=== PATIENT | male | born 1955 | race Caucasian/White ===

== ENCOUNTER → 2021-03-22 | Outpatient (CLI) | payer BC ==
[2021-03-22 11:14] LABS: HCT 43.5 % (39.0-53.0); HGB 15.1 gm/dL (13.0-17.5); MCH 34.2 pg (25.0-35.0); MCHC 34.8 g/dL (31.0-37.0); MCV 98.2 fL (80.0-100.0); Mean Platelet Volume 7.4; Platelet Count 267 k/uL (150-450); RBC 4.43 m/uL (4.30-5.90); RDW 11.8 % (11.5-15.5); WBC 6.1 k/uL (3.8-10.6)
[2021-03-22 11:27] LABS: ALT 21 U/L (4-49); AST 25 U/L (17-59); African American GFR (CKD) >90 (>60 ml/min/1.73 sqM); Albumin 4.7 g/dL (3.5-5.0); Alkaline Phosphatase 67 U/L (38-126); Anion Gap 7 mmol/L; Blood Urea Nitrogen 9 mg/dL (9-20); Calcium 9.9 mg/dL (8.4-10.2); Carbon Dioxide 27 mmol/L (22-30); Chloride 96 mmol/L (98-107); Glucose 101 mg/dL (74-99); Non-African American GFR(CKD) >90 (>60 ml/min/1.73 sqM); Potassium 4.2 mmol/L (3.5-5.1); Sodium 130 mmol/L (137-145); Total Bilirubin 0.6 mg/dL (0.2-1.3); Total Protein 7.7 g/dL (6.3-8.2)
[2021-03-22 11:31] LABS: Partial Thromboplastin Time 24.2 sec (22.0-30.0); Prothrombin Time 10.4 sec (9.0-12.0)
[2021-03-22 11:53] LABS: Appearance,Urine Clear (Clear); Bilirubin,Urine Negative (Negative); Blood,Urine Negative (Negative); Color,Urine Light Yellow; Glucose,Urine (UA) Negative (Negative); Ketones,Urine Negative (Negative); Leukocyte Esterase,Urine Negative (Negative); Nitrite,Urine Negative (Negative); PH, Urine 7.5 (5.0-8.0); Protein,Urine Negative (Negative); Specific Gravity,Urine 1.007 (1.001-1.035); Urobilinogen,Urine <2.0 mg/dL (<2.0)
== END | disposition home or self-care (01) ==
LOC: LABPAT 10:09
PROVIDERS: ATTEND Orthopaedic Surgery
DX: Z01.812 Encounter for preprocedural laboratory examination (principal); M16.12 Unilateral primary osteoarthritis, left hip
CPT/HCPCS: 36415; 80053; 81003; 85027; 85610; 85730; 87070

== ENCOUNTER 2021-04-03 07:45 | Day surgery (SDC) | payer BC ==
[2021-03-30 09:36] VITALS: BMI 22.9
[~2021-04-03 07:45] MED LIST: ACETAMINOPHEN TAB 500 MG TAB PO PRN; DEXAMETHASONE SOD PHOSPHATE 4 MG/ML 1 ML VIAL IV ONE; GABAPENTIN 300 MG CAP PO PRN; LIDOCAINE 1% (10MG/ML) FOR IV START INTRADERMA PRN; MELOXICAM 7.5 MG TAB PO PRN; MIDAZOLAM 2 MG/2 ML VIAL IV PRN; ONDANSETRON 4 MG/2 ML VIAL IVP ONE; TRANEXAMIC ACID 1,000 MG in SODIUM CHLORIDE 0.9% 100 ML IVPB PRN
[2021-04-03] MEDS: LACTATED RINGERS 1,000 ML IV SCH ×2 (08:26→09:19)
[2021-04-03] MEDS ORDERED: HEPARIN SODIUM,PORCINE 10,000 UNIT/ML 1 ML VIAL ONE (09:18)
[2021-04-03] MEDS ORDERED: SUCCINYLCHOLINE CHLORIDE 100 MG/5 ML SYR IV ONE (09:18)
[2021-04-03] MEDS ORDERED: TRANEXAMIC ACID 1,000 MG/10 ML VIAL ONE (09:18)
[2021-04-03] MEDS ORDERED: SODIUM CHLORIDE 0.9% IRRIG 1,000 ML BTL IRRIGATION ONE (09:18)
[2021-04-03] MEDS ORDERED: MIDAZOLAM 2 MG/2 ML VIAL ONE (09:18)
[2021-04-03] MEDS ORDERED: PROPOFOL 10 MG/ML 20 ML VIAL IV ONE (09:18)
[2021-04-03] MEDS ORDERED: HYDROmorphone (PF) 1 MG/ML ONE (09:18)
[2021-04-03] MEDS ORDERED: fentaNYL (PF) 50 MCG/ML 2 ML AMP ONE (09:18)
[2021-04-03] MEDS ORDERED: SODIUM CHLORIDE 0.9% 100 ML BAG ONE (09:18)
[2021-04-03] MEDS ORDERED: PHENYLEPHRINE-0.9% NACL SYG 1,000 MCG/10 ML SYRINGE ONE (09:18)
[2021-04-03] MEDS ORDERED: LIDOCAINE 1% INJ 10MG/ML (20 ML MDV) ONE (09:18)
[2021-04-03] MEDS ORDERED: KETAMINE 10 MG/ML 20 ML VIAL ONE (09:18)
[2021-04-03] MEDS ORDERED: ceFAZolin 1,000 MG in SODIUM CHLORIDE 0.9% 1,000 ML IRRIGATION ONE (09:21)
[2021-04-03] MEDS ORDERED: NALOXONE 0.4 MG/ML 1 ML VIAL IV PRN (09:24)
[2021-04-03] MEDS ORDERED: HYDROmorphone 0.5 MG/0.5 ML SYRINGE IVP PRN (09:24)
[2021-04-03] MEDS ORDERED: ONDANSETRON 4 MG/2 ML VIAL IVP PRN (09:24)
[2021-04-03] MEDS ORDERED: HYDROmorphone 0.2 MG/1 ML SYRINGE IVP PRN (09:24)
[2021-04-03] MEDS ORDERED: HYDROmorphone 1 MG/ML 1 ML SYRINGE IVP PRN (09:24)
[2021-04-03] MEDS ORDERED: HYDROcodone/APAP 7.5-325MG 1 EACH TAB PO PRN ×2 (09:26)
[2021-04-03] MEDS ORDERED: SODIUM CHLORIDE 0.9% 1,000 ML IV SCH (09:30)
[2021-04-03] MEDS: ROPIVACAINE/EPI/CLONIDINE/KET 50 ML SYRINGE MISCELLANE PRN ×2 (09:46→10:22)
--- NOTE | 2021-04-03 10:30 | P.OP ---
Date of Procedure: 04/03/21 Preoperative Diagnosis: Severe osteoarthritis left hip Postoperative Diagnosis: Severe osteoarthritis left hip Procedure(s) Performed: Left total hip arthroplasty with a direct anterior approach Implants: [employer] Polarstem standard size 4 [employer] R3, 3 hole hemispherical acetabular shell, 52 mm [employer] Reflection 6.5 mm cancellus screw, 20 mm 2 [employer] R3, XLPE 20 acetabular liner [employer] Oxinium femoral head 36 m, -3 All components were press-fit. The articulation is Oxinium on polyethylene. Anesthesia: GETA Surgeon: Yong Renner Clinical Cytogeneticist #1: Brenda Noble Estimated Blood Loss (ml): 100 Pathology: other (Femoral head) Condition: stable Disposition: PACU Indications for Procedure: After failure of conservative treatment we discussed the surgical and nonsurgical treatment options at length. Patient wishes to proceed with a total hip arthroplasty with a direct anterior approach. Complications specific to this procedure were discussed at length, including but not limited to infection, leg length discrepancy, dislocation, nerve injury, and fracture. Covid-19 was also discussed at length with the patient, and they are aware of the current policies and procedures. The patient was given the option of delaying surgery, but they elect to proceed knowing these risks. Patient is aware of all these complications and informed consent was obtained Operative Findings: The operative findings are consistent with severe osteoarthritis of the left hip Description of Procedure: Patient was seen and evaluated in the preoperative area and the consent was reviewed. The operative site was marked with a skin marker. The patient was then brought to the operating room and given preoperative antibiotics intr avenously. 1 g of Tranexamic acid was also given intravenously. A general anesthetic was administered by the anesthesia department. The patient was then placed on the Universal table with the bony prominences well-padded. The hip area was then prepped with a ChloraPrep solution and draped in the usual sterile fashion. A universal timeout was then performed, which confirmed the patient's name, joaquim gical site, ALLERGIES, and procedure being performed on the consent. Next the incision site was located at 1 cm distal to the anterior superior iliac spine and 2 cm lateral. The skin and subcutaneous tissues were sharply incised. Incision was carefully dissected down to the fascia overlying the tensor fascia tonny muscle. This fascia was then incised in line with the incision. Care was taken to stay laterally in order to avoid injuring the lateral femoral cutaneous nerve. Next, using blunt finger dissection, the tensor fascia tonny muscle was dissected off its investing fascia. The muscle was then carefully retracted laterally with a cobra retractor over the lateral neck of the femur. Next, the circumflex vessels were identified and cauterized using the AquaMantis device. The anterior hip capsule was then exposed. The capsule was then opened and an inverted T fashion. Cobra retractors were then placed intracapsularly. The retractors were maintained intracapsular throughout the procedure. The proximal femur was then visualized. A small amount of traction was placed on the leg. The femoral neck was then osteotomized appropriate level above the lesser trochanter. A small wedge of bone was then removed from the remaining femoral head. Next, using a corkscrew the femoral head was removed from the acetabulum. On gross visual inspection, the femoral head had complete loss of articular cartilage and multiple periarticular osteophytes. The femoral head was then measured. Attention was then turned to the acetabulum. The acetabulum was exposed and any remaining labrum was excised. Sequential reaming of the acetabulum was performed using fluoroscopic guidance until there was a good bed of bleeding cancellus bone. When the appropriate size was reached, a trial was then placed. The position and fit of the trial was checked with fluoroscopy. The trial was then removed. Then, using fluoroscopic guidance, the final implant was impacted at 20 of anteversion and 40 of abduction, and fully seated in the acetabulum. 2 screws were then placed in the acetabulum. Again fluoroscopy was used to check position of the screws. Next, the liner was then impacted, with a 20 elevated liner located in the anterior superior quadrant. Component locking was confirmed. Attention was then directed to the femur. With the aid of the Universal table, the femur was externally rotated to approximately 130, extended, and adducted under the opposite leg. A side hook was then placed under the proximal femur, and the side hook elevator was used to elevate the proximal femur while releasing the capsule. Retractors were then placed. A capsular release was performed, as well as a release of the conjoined tendon, which afforded excellent visualization of the proximal femur. Next, a box osteotome was used to lateralize the proximal femur. A hand braille transcriber was then used to locate the femoral canal. Sequential broaching was then performed with appropriate size which afforded excellent fixation in the proximal femur. A trial was then placed with appropriate head and neck, and the hip was gently reduced with the aid of the Universal table. Fluoroscopy was then used to check position of the components, as well as to ensure equal leg lengths. The hip was then gently dislocated and the trials were then removed. Final implants were then impacted and the hip was again reduced. Final fluoroscopic x-rays confirmed that the components were in anatomic position, as well as equal leg lengths. The hip was also taken through range of motion, and found to be stable. The hip was then copiously irrigated with antibiotic solution with pulsatile lavage. The hip was then irrigated with Irrisept solution. The soft tissues were then injected with a ropivacaine solution, which consisted of 246.25 mg of ropivacaine, 0.5 mg of epinephrine, 30 mg of Toradol, 80 g of clonidine, and 48.45 mL of sterile water, for a total of 100 mL of fluid injected. A second dose of 1 g of Tranexamic acid was also given intravenously. Any blood collected by Cell Saver was then returned to the patient at this time. The fascia was then closed with 2-0 strata fix suture. The subcutaneous tissue was closed with 3-0 Vicryl. The subcuticular tissue was closed with 3-0 strata fix suture. The skin was then closed with Exofin skin glue. After the glue and dried, and Optifoam silver impregnated dressing was applied. The patient was then transferred to the recovery room in stable condition. The animal assistant HUNTER Sharpe was required due to the complexity of surgery, and the need for skilled surgical assistant certified for positioning, draping, exposure, retraction, and closure of the wound.
--- NOTE | 2021-04-03 10:44 | FL ---
Fluoroscopy INDICATION: Pain FINDINGS: Fluoroscopy time: 24 seconds. Images obtained: 0. IMPRESSIONS: 1. Documentation of fluoroscopy.
--- NOTE | 2021-04-03 10:45 | XR ---
Fluoroscopy INDICATION: Pain FINDINGS: Fluoroscopy time: 24 seconds. Images obtained: 2. IMPRESSIONS: 1. Documentation of fluoroscopy.
[2021-04-03] MEDS: HYDROmorphone 0.5 MG/0.5 ML SYRINGE IVP PRN ×3 (10:54→11:19)
[2021-04-03 10:58] VITALS: TEMP 96.9
--- NOTE | 2021-04-03 11:25 | XR ---
EXAMINATION TYPE: XR Hip Limited LT DATE OF EXAM: 04/03/2021 COMPARISON: None HISTORY: Status post hip surgery TECHNIQUE: AP left hip FINDINGS: Femoral component and acetabular component place. No acute fractures are evident. Postsurgi chalo changes are within soft tissues. IMPRESSION: 1. No acute fracture post hip replacement
[2021-04-03 14:02] VITALS: BP 117/81; PULSE 95; RESP 16
== END 2021-04-03 14:25 | disposition home health service (06) ==
LOC: OR 07:45 → EDSTATUS 09:10 → OR 14:25
PROVIDERS: ATTEND Orthopaedic Surgery
DX: M16.12 Unilateral primary osteoarthritis, left hip (principal); I10 Essential (primary) hypertension; Z79.899 Other long term (current) drug therapy
CPT/HCPCS: 97110; 97161; 86891; 86900; 86901; 86850; 73501; 27130; C1776; J1100; J0690 ×2; J2405; J1170; 88300

== ENCOUNTER → 2021-11-06 | Outpatient (CLI) | payer BC, MEDICARE ==
--- NOTE | 2021-11-06 10:19 | P.CON ---
Consult Note - . Consult date: 11/06/21 Assessment/Plan:: HISTORY OF PRESENT ILLNESS: 66 yr old male as a referral from Dr Vazquez presents today with severe and chronic cervical pain x 5 months secondary to disc bulges, facet arthropathy, dextroscoliosis, anterolisthesis and neuroforaminal stenoses for evaluation. Pt states his neck pain wraps around to R eyes, it is 2 /10 intensity, sharp, throbbing, achy type of pain in the center of the upper/ middle aspect of his C spine. Pain is provoked with PT in October 2021 which worsened pain, rotation of C spine, home exercise regimen, traction which worsened pain, massage therapy which worsened pain, chiropractic treatments last in October 2021 which worsened pain Pain is relieved with medications ([place], Tylenol), cannabis use, soft C collar, repositioning and rest. PMH: HTN, Vitamin D Deficiency PSH: L LUISA SH: Hx of tobacco use, quit in 2005. + Cannabis use. Occasional ETOH use. FH: HTN All: NKDA Meds: See list REVIEW OF ORGAN SYSTEMS: CONSTITUTIONAL: No fevers or chills. No recent weight loss. HEENT: No visual acuity loss, eye pain, difficulties with hearing. No nosebleeds. No difficulty swallowing. RESPIRATORY: Denies any troubles with breathing or dyspnea on exertion. CARDIOVASCULAR: Denies any chest pain, palpitations, or recent heart attacks. GASTROINTESTINAL: Denies fatty food intolerance. Has change in bowel habits and gas bloat. GENITOURINARY: Denies any blood in urine. Has increased urinary frequency. NEUROLOGICAL: + numbness and tingling along the distal extremities. No seizure disorders or headaches. MUSCULOSKELETAL: + back pain SKIN: No skin cancer. No rash. PSYCHIATRIC: Denies current depression or suicidal thoughts. ENDOCRINE: Denies current thyroid disorders. Denies any blood sugar glucose intolerance. HEME/LYMPHATIC: Denies any lumps and bumps around the neck. History of deep venous thrombosis. ALLERGY/IMMUNOLOGY: No immunoglobulin therapy. No immune deficiencies. BREAST: Denies current breast lumps, pain or nipple discharge. Physical Examinations : Constitutional : Cooperative , not in acute distress . HEENT: Neck supple. No Lymphadenopathy. Normal thyroid size . Eyes no ptosis , no icterus, no photophobia . +R G.O.N. Hearing intact. Normal oropharynx. No Thrush. Respiratory : Chest clear to auscultations bilaterally. No wheezing. No rhonchi. Cardiovascular : Regular rate and rhythm , S1 / S2. No S3 . No S4. Gastrointestinal : Abdomen soft. No tenderness. Bowel sounds x 4. No organomegaly . Genitourinary : Deferred. Neurologic : Cranial nerve II to XII intact. No focal neurological deficits. Psychiatric : alert & oriented x 3. Matching mood & appropriate affect. Judgment & insight intact. Lymphatic No Lymphadenopathy. Musculoskeletal : Cervical Spine Motor strength in the deltoid and biceps: Normal right side. Normal Left side Motor strength biceps and the wrist extensors: Normal right side . Normal left side Motor strength in the triceps muscle: Normal right side. Normal left side Deep tendon reflexes: Normal at the biceps. Normal at Brachioradialis. Normal at triceps Cervical facet loading test: positive bilaterally Spurling test: positive bilaterally Neck distraction test: positive bilaterally Evelyn sign: positive bilaterally Lumbar spine Motor strength lower extremities ,thigh and legs 5/5 Right side , 5/5 Left side Deep tendon reflexes : Normal Knee Jerk. Normal Ankle Jerk Vertebral body tenderness over Lumbar facet Loading Test: positive Right / positive Left Range of motion of the lumbar spine Flexion 30 degrees, extension 10 degrees Straight Leg Raise test: Left/ Right positive at degree Johana test: positive right / positive left. Severe tenderness over the Sacroiliac joint on the Right / Left sides Gaenslen test: positive bilaterally Seated flexion test: positive bilaterally. Imaging: MRI of the cervical spine without contrast from 10/20/21 reviewed. Assessment/ Plan : R Occipital Neuralgia Recommendation of R G.O.N. injection. May need a series of injections, up to 3 within a 6 mo period, to obtain optimal pain relief. Risks, benefits of procedure discussed and patient verbalized understanding. Denies aspirin or anti- coagulant use. Denies medical history of diabetes. All questions answered. I have spent greater than 50 minutes on patient care today. Dr Rodas was available by phone for the evaluation of this patient. The time was used to review the medical records including relevant urine studies and Prescription history (MAPs), review of the available imaging, evaluation and examination of the patient, coordination of care with the medical staff and if applicable referring physicians, as well as creation of the medical record PQRS Measure Charge Sheet Home Medications: Ambulatory Orders Aspirin [Adult Low Dose Aspirin EC] 81 mg PO DAILY 03/30/21 Cholecalciferol (Vitamin D3) [Vitamin D3 (125 MCG = 5,000 IU)] 250 mcg PO DAILY 03/30/21 HYDROcodone/APAP 5-325MG [[place] 5-325] 1 tab PO BID PRN 03/30/21 Lisinopril-Hctz 20-25 mg [Zestoretic 20-25] 1 tab PO DAILY 03/30/21 Aspirin 325 mg PO BID #60 tab 04/03/21 HYDROcodone/APAP 7.5-325MG [[place] 7.5-325] 1 - 2 tab PO Q6H PRN #32 tab 04/03/21 Ondansetron Odt [Zofran Odt] 1 tab PO Q8HR PRN #10 tab 04/03/21 Sennosides [Senokot] 2 tab PO DAILY PRN #60 tablet 04/03/21
[2021-11-06 10:20] VITALS: BP 155/94; PULSE 80; RESP 18; TEMP 98.1
== END ==
LOC: PNWHC3 09:24
PROVIDERS: ATTEND Specialist
DX: M54.81 Occipital neuralgia (principal); M50.20 Other cervical disc displacement, unspecified cervical region; M47.812 Spondylosis without myelopathy or radiculopathy, cervical region; M48.02 Spinal stenosis, cervical region; M41.80 Other forms of scoliosis, site unspecified; I10 Essential (primary) hypertension
CPT/HCPCS: 99211

== ENCOUNTER 2021-12-19 09:24 | Day surgery (SDC) | payer MEDICARE ==
[2021-12-18 14:54] VITALS: BMI 22.5
[2021-12-19 10:05] VITALS: RESP 16; TEMP 98
[2021-12-19] MEDS ORDERED: LACTATED RINGERS 1,000 ML IV ONE (10:13)
[2021-12-19] MEDS ORDERED: LIDOCAINE 1% (10MG/ML) FOR IV START INTRADERMA ONE (10:14)
[2021-12-19] MEDS ORDERED: fentaNYL (PF) 50 MCG/ML 2 ML AMP ONE (10:36)
[2021-12-19] MEDS ORDERED: methylPREDNISolone ACETATE 40 MG/ML 1 ML VIAL ONE (10:36)
[2021-12-19] MEDS ORDERED: MIDAZOLAM 2 MG/2 ML VIAL ONE (10:36)
[2021-12-19] MEDS ORDERED: ROPIVACAINE 5MG/ML 20ML VIAL ONE (10:36)
--- NOTE | 2021-12-19 10:51 | P.PCN ---
Date of Procedure: 12/19/21 Procedure(s) Performed: Preoperative diagnoses= 1- Greater occipital neuralgia. 2-cervical spondylosis Postoperative diagnoses= same as preoperative diagnosis. Procedure= Right Greater occipital nerve block Anesthesia= moderate sedation with Versed 2 mg and fentanyl 100 micrograms . Estimated blood loss=minimal. Procedure indication= the patient had a history of severe chronic neck pain ,and headache, diagnosed with occipital neuralgia exam was positive for severe tenderness over the occipital nerve bilaterally, she will be a good candidate occipital nerve block, patient failed conservative management Procedure description= the patient was seen and identified in the preoperative holding area, risks and benefits and alternative of the procedure and possible complications discussed with the patient, and he agreed with the preceding, patient signed the consent, an IV was started, and vital signs were monitored and were stable throughout the procedure, patient was placed in the sitting position or table and the neck area was prepped and draped with a sterile fashion, vital signs were closely monitored during the procedure, 25-gauge needle advanced 1 inch lateral to the occipital protuberance on the right side, at the location of the right occipital nerve , then after negative aspiration for heme and CSF and there was no paresthesia during the injection, 6 ml of Robivacaine 0.5% and 40 mg of Depo-Medrol injected after negative aspiration, the needle removed. Patient tolerated the procedure well without any complication, The patient returned to supine position after the back was cleaned and a Band- Aid applied, the patient transported to recovery room in stable condition and he was monitored for 30 minutes before he was discharged home and then patient was reexamined before going home and patient was discharged in stable condition and patient will follow up with the pain clinic in a few weeks.
[2021-12-19] MEDS ORDERED: IV FLUID CONTINUATION 700 ML IV ONE (10:58)
[2021-12-19 11:07] VITALS: BP 103/66; PULSE 83
== END 2021-12-19 11:18 | disposition home or self-care (01) ==
LOC: ORPAIN 09:24
PROVIDERS: ATTEND Specialist
DX: M54.81 Occipital neuralgia (principal); M47.812 Spondylosis without myelopathy or radiculopathy, cervical region
CPT/HCPCS: 64405; J2250; J1030; J3010; J2795

== ENCOUNTER → 2022-01-31 | Outpatient (CLI) | payer MEDICARE ==
--- NOTE | 2022-01-31 13:32 | P.PN ---
Subjective Progress Note Date: 01/31/22 This is a follow-up visit for this 66 years old male, chronic history of severe neck pain and headache, and diagnosed with occipital neuralgia and cervical degenerative disc disease and cervical foraminal stenosis and cervical spondylosis with cervical facet arthropathy, recently we have done right side oc cipital nerve block x1 , she reported that he had excellent relief of his headache, he reported that his headache resolved completely after the occipital nerve block, currently his main issue is severe neck pain and mainly on the right side, he denies any radicular symptoms he denies any gross sensory deficit he denies any change in the bowel movement or urination, she'll already done physical therapy previously and which made his neck pain course for this reason he stopped doing physical therapy and he has done chiropractic in the past, patient continued to use pain medication [place] and ibuprofen and acetaminophen when necessary, denies any side effects of the medication Objective - Vital Signs Vital signs: Intake & Output 01/30/22 01/31/22 01/31/22 18:59 06:59 18:59 Weight 72.575 kg - Exam Physical Examinations : -Constitutiona : Cooperative , not in acute distress . -HEENT : nech : supple , no Lymphadenopathy , normal thyroid size . : eyes : no ptosis , no icterus, no photo phobia . - neurologic : Cranial nerve II to XII intact , no focal neurological deffecit . -psychatric : alert , oriented X 3 , appropriate affect , intact judgment and insight . -Lymphatic : no Lymphadenopathy . - musculoskeltal : Cervical Spine motor stregnth in the deltoid and biceps, normal right side , normal Left side motor stregnth biceps and the wrist extensors normal right side ,normal left side . motor stregnth in the triceps muscle . normal Right side , normal Left side deep tendon reflexes normal at the biceps , normal at Brachioradialis , normal at triceps. cervical facet loading test: Positive right Spurling test= positive Right , positive left. Neck distraction test= positive Right . Evelyn sign= positive right. Lumber spine moter stegnth lower extremities ,thigh and legs 5/5 Right side , 5/5 Left side MRI of the cervical spine reviewed= multilevel cervical degenerative disc disease multilevel cervical facet arthropathy and multilevel cervical foraminal stenosis Assessment and Plan Plan: Assessment and plan=1-occipital neuralgia 2-cervical foraminal stenosis. 3-cervical degenerative disc disease 4-cervical spondylosis with cervical facet arthropathy. Headache improved completely after occipital nerve block. The patient complaining of severe neck pain mainly on the right side patient could benefit from a medical epidural steroid injection under fluoroscopy guidance at C6 7 level right paramedian approach Time with Patient: Less than 30
[2022-01-31 14:59] VITALS: BP 138/84; PULSE 69; RESP 18; TEMP 98.3
== END ==
LOC: PNWHC3 12:43
PROVIDERS: ATTEND Specialist
DX: M54.81 Occipital neuralgia (principal); M48.02 Spinal stenosis, cervical region; M50.30 Other cervical disc degeneration, unspecified cervical region; M47.812 Spondylosis without myelopathy or radiculopathy, cervical region
CPT/HCPCS: 99211

== ENCOUNTER 2022-03-15 09:20 | Day surgery (SDC) | payer MEDICARE ==
[2022-03-14 12:07] VITALS: BMI 23.6
[~2022-03-15 09:20] MED LIST changes: -ACETAMINOPHEN TAB 500 MG TAB PO PRN; -DEXAMETHASONE SOD PHOSPHATE 4 MG/ML 1 ML VIAL IV ONE; -GABAPENTIN 300 MG CAP PO PRN; +LACTATED RINGERS 1,000 ML IV SCH; -MELOXICAM 7.5 MG TAB PO PRN; -MIDAZOLAM 2 MG/2 ML VIAL IV PRN; -ONDANSETRON 4 MG/2 ML VIAL IVP ONE; -TRANEXAMIC ACID 1,000 MG in SODIUM CHLORIDE 0.9% 100 ML IVPB PRN
[2022-03-15 09:49] VITALS: RESP 16; TEMP 97.8
[2022-03-15] MEDS ORDERED: DEXAMETHASONE SOD PHOSPHATE 10 MG/ML 1 ML VIAL ONE (10:30)
[2022-03-15] MEDS ORDERED: IOPAMIDOL M200 10 ML VIAL ONE (10:30)
[2022-03-15] MEDS ORDERED: MIDAZOLAM 2 MG/2 ML VIAL ONE (10:30)
[2022-03-15] MEDS ORDERED: fentaNYL (PF) 50 MCG/ML 2 ML AMP ONE (10:30)
--- NOTE | 2022-03-15 10:41 | P.PCN ---
Date of Procedure: 03/15/22 Procedure(s) Performed: . PROCEDURE 1. Cervical epidural steroid injection under fluoroscopic guidance, C6-7 . (fluoroscopy images available in the radiology department ) 2. Cervical epidurogram. PREOPERATIVE DIAGNOSIS: 1- Cervical Degenerative Disc Diseases 2- Cervical foraminal stenosis 3-cervical spondylosis with cervical Facet arthropathy without myelopathy.4-cervical spinal stenosis POSTOPERATIVE DIAGNOSIS: : 1- Cervical Degenerative Disc Diseases , 2- Cervical foraminal stenosis 3-,cervical spondylosis with cervical Facet arthropathy without myelopathy. 4-cervical spinal stenosis ANESTHESIA: moderate sedation, with Versed 2 mg and Fentanyl 50 mcg. Sedation start time :10:32 Sedation end time : 10:38 EBL 0 PROCEDURE INDICATION: The patient with neck pain and radiculitis unresponsive to conservative treatment consents for procedure. PROCEDURE DESCRIPTION / TECHNIQUE: The patient was seen and identified in the preoperative area. Risks, benefits, complications, including but not limited to infections ,bleeding , allergic reactions to the medications ,and not complete pain releife, and alternatives were discussed with the patient, the patient agreed to proceed with the procedure and signed the consent. Patient was taken to the OR and time out was completed. The patient was placed in the prone position on the procedure table. A pillow was placed under the patients chest to increase the cervical interlaminar space. The cervical area was prepped and draped in the usual sterile fashion. Vital signs were closely monitored during the procedure. Conscious sedation was used during the procedure to decrease patients anxiety. Using anterior-posterior fluoroscopy, the C6-7 interlaminar space was identified and the skin over this site was marked and then infiltrated with 1% lidocaine subcutaneously. Subsequently, a 22-gauge 3-1/2-inch Tuohy epidural needle was inserted and advanced toward the epidural space ( right paramedial )by means of the ``hanging-drop technique and guided by AP and lateral fluoroscopy. The correct needle position in the epidural space was verified with the injection of 2 mL of the water soluble contrast dye [id number]-200 and observing an excellent epidurogram with the epidural spread of the dye, after negative aspiration for blood and CSF and in the absence of paresthesias. then, mixture containing 20 mg Dexamethasone and 2 ml of preservative-free normal saline injected and a washout of epidurogram was seen. Needle was withdrawn intact, skin was cleansed, and bandages were applied. Complications= none. Disposition= patient was placed in supine position and transferred to the recovery room area in stable condition and there was no evidence of upper or lower extremity motor or sensory deficit after the procedure patient was discharged from recovery room after discharge criteria met and home discharge instructions was given by the staff and patient will follow with the pain clinic in 2-4 weeks
[2022-03-15] MEDS ORDERED: IV FLUID CONTINUATION 1,000 ML IV ONE (10:46)
[2022-03-15 11:05] VITALS: BP 140/85; PULSE 73
--- NOTE | 2022-03-15 12:33 | FL ---
EXAMINATION TYPE: FL guided pain mgmt statistic DATE OF EXAM: 03/15/2022 FLUOROSCOPY Fluoroscopy time of 1 seconds was used during cervical epidural injection. 1 image/s document/s the procedure.
== END 2022-03-15 11:14 | disposition home or self-care (01) ==
LOC: ORPAIN 09:20
PROVIDERS: ATTEND Specialist
DX: M50.323 Other cervical disc degeneration at C6-C7 level (principal); M48.02 Spinal stenosis, cervical region; M47.812 Spondylosis without myelopathy or radiculopathy, cervical region; M54.81 Occipital neuralgia
CPT/HCPCS: 62321; J2250; J1100; J3010; Q9966

== ENCOUNTER → 2022-04-11 | Outpatient (CLI) | payer MEDICARE ==
[2022-04-11 13:16] VITALS: BP 121/85; PULSE 78; RESP 18; TEMP 98.6
--- NOTE | 2022-04-11 14:11 | P.PAINPG ---
PQRS Measure Charge Sheet Comment: A 66 yr old male with a history of severe and chronic neck pain secondary to cervical degenerative disc diseases and spondylosis with facet arthropathy without myelopathy presents today for evaluation s/p R Paramedial BUDDY C6-7. Pt states he experienced 80% pain relief x 4 wks s/p procedure. Pain level is currently at 1.5/10 in intensity, constant, localized in upper neck, sharp in character w shooting towards the scalp BL. Pain is provoked to 8/10 by wearing a helmet. Pain is alleviated with PT x 3 wks in October 2021 which provoked pain, home exercise regimen, massage integrated w PT, chiropractic treatments monthly for years, ice, meds ([place], Ibu), repositioning and rest. Interventional pain procedures completed include R paramedian BUDDY C6-C7, BL ON injection. Patient is currently on [place], Ibuprofen Patient denies any side effects of the medication(s), denies excessive drowsiness or sleepiness, denies suicidal ideation and reports that the current pain medication is helping to control the pain and improve activities of daily living. Patient denies any motor or sensory deficits. Patient denies any fever or night sweats, denies any change in the bowel movements or urination. Physical Examination: -Constitutional: Cooperative. Not in acute distress . - Neurologic: Cranial nerve II to XII intact. No focal neurological deficits. - Psychatric: Alert & oriented x 3. Matching mood & appropriate affect. Judgment and insight intact. - Musculoskeletal: Cervical spine: Muscle bulk/ tone/ strength in the bilateral upper extremities normal Vertebral body tenderness to palpation over C6 Spurling test positive Distraction test positive Facet loading test positive Thoracic spine Muscle bulk / tone/ strength in the bilateral paraspinal muscles normal Vertebral body tender to palpation over Facet loading test positive Lumbar spine: Motor bulk/ tone/ strength lower extremities , thigh and legs : 5/5 Deep tendon reflexes : Normal Knee Jerk. Normal Ankle Jerk . Vertebral body tenderness to palpation over Lumbar Facet Loading Test positive Straight Leg Raise: positive at 30 degrees right side/ left side Gaenslen's Test positive Sacral spine : Severe tenderness over the Sacroiliac joint: right side / left side Range of motion: Flexion of the lumbar spine <60 degrees Range of motion: Extension of the lumbar spine <20 degrees Gaenslen's Test positive Toni's Test positive Johana test: positive right side / left side Thigh Thrust Test Sacral Thrust Test Assessment and plan: Chronic neck pain secondary to cervical degenerative disc disease , spondylosis with facet arthropathy without myelopathy Recommendation of BUDDY R Paramedian C6-C7 #2. May need a series, up to 3 within a 6 mo period, for optimal pain relief. Risks, benefits of procedure discussed and pt verbalized understanding. Denies anticoagulant use or medical history of diabetes. All patient questions answered I have spent less than 30 minutes on patient care today. Dr Rodas was available by phone for the evaluation of this patient. The time was used to review the medical records including relevant urine studies and Prescription history (MAPs), review of the available imaging, evaluation and examination of the patient, coordination of care with the medical staff and if applicable referring physicians, as well as creation of the medical record PQRS Narrative: Hx Alcohol Use (MH) Yes: 2 or 3 x a week Home Medications: Ambulatory Orders Aspirin [Adult Low Dose Aspirin EC] 81 mg PO DAILY 03/30/21 Cholecalciferol (Vitamin D3) [Vitamin D3 (125 MCG = 5,000 IU)] 250 mcg PO DAILY 03/30/21 HYDROcodone/APAP 5-325MG [[place] 5-325] 1 tab PO BID PRN 03/30/21 Lisinopril-Hctz 20-25 mg [Zestoretic 20-25] 1 tab PO DAILY 03/30/21 Sennosides [Senokot] 2 tab PO DAILY PRN #60 tablet 04/03/21 Acid Reflux Med 1 dose PO DIRECTED PRN 12/18/21 Controlled Substance Measures - Controlled Substance Measures Is patient prescribed a controlled substance at discharge?: No
== END | disposition home or self-care (01) ==
LOC: PNWHC3 12:38
PROVIDERS: ATTEND Specialist
DX: M47.812 Spondylosis without myelopathy or radiculopathy, cervical region (principal); M50.30 Other cervical disc degeneration, unspecified cervical region; G89.29 Other chronic pain; K21.9 Gastro-esophageal reflux disease without esophagitis; F10.90 Alcohol use, unspecified, uncomplicated
CPT/HCPCS: 99211

== ENCOUNTER 2022-05-17 09:14 | Day surgery (SDC) | payer MEDICARE ==
[2022-05-11 14:03] VITALS: BMI 22.9
[2022-05-17 09:29] VITALS: TEMP 97.1
[2022-05-17] MEDS ORDERED: MIDAZOLAM 2 MG/2 ML VIAL ONE (09:49)
[2022-05-17] MEDS ORDERED: DEXAMETHASONE SOD PHOSPHATE 10 MG/ML 1 ML VIAL ONE (09:49)
[2022-05-17] MEDS ORDERED: IOPAMIDOL M200 10 ML VIAL ONE (09:49)
[2022-05-17] MEDS ORDERED: fentaNYL (PF) 50 MCG/ML 2 ML AMP ONE (09:49)
--- NOTE | 2022-05-17 10:01 | P.PCN ---
Date of Procedure: 05/17/22 Description of Procedure: Pre- and Post-operative Diagnosis: Cervical radiculopathy Procedure: C6-C7 Inter-Laminar Cervical Epidural Steroid Injection under biplanar fluoroscopy Surgeon: Stephanie Phelps Anesthesia: Local: 1% Lidocaine, IV sedation : Versed 2 mg, and fentanyl 100 g. Sedation supervision start time : 950 sedation Supervision end time: 10 Complications: None. Estimated blood loss: None Specimens removed: None Fluoroscopic image: saved to electronic medical records. Indications for Procedure: The patient has been suffering from neck pain and pain radiating to the upper extremity . Inadequate pain control with pharmacologic regimen. An inter-laminar approach cervical epidural steroid injection was scheduled for the patient. Procedure and Findings: The patient was seen and examined in the holding area. The written informed consent was obtained after explaining the risks, benefits, alternatives of the procedure to the patient. The patient was brought to the procedure room and was placed in the prone position on the operating table. A pillow was placed under the upper chest. Standard anesthesia monitoring was done through out the procedure. Timeout was completed. The skin preparation was done with ChloraPrep 2 and draping was done in usual sterile fashion. Sterile technique was observed throughout the procedure. Under fluoroscopic guidance, the C6-C7 inter-laminar space was identified. 3 ml of 1% Lidocaine was injected with a 25 gauge needle to achieve adequate local anesthesia of the skin and subcutaneous tissue. A 20 gauge, 3.5 inch Tuohy type epidural needle was placed and gradually advanced up to the epidural space using loss of resistance technique and fluoroscopic guidance. Lateral, oblique fluoroscopic views confirm the needle position. No paresthesia was noted. A negative aspiration was confirmed and then 1 ml of Isovue-200 was injected. A good dye spread was seen in the epidural space and it was negative for any intrathecal, intraneural or intravascular spread. A total of 6 ml solution containing 10 mg Dexamethasone, and 5 ml preservative-free Normal Saline was injected slowly with intermittent aspiration. The needle was removed intact, area was cleaned and bandage was applied. Disposition : The patient tolerated the procedure very well. The patient was transferred to the recovery room and remained stable until discharged home. The patient was given detailed discharge instructions for bleeding, infection, increased pain at the injection site, and was advised to seek immediate medical attention should significant side effects develop. The patient will be followed up with our Pain [facility] within 4 weeks for follow-up visit.
[2022-05-17] MEDS ORDERED: LACTATED RINGERS 1,000 ML IV ONE (10:05)
--- NOTE | 2022-05-17 10:15 | FL ---
Fluoroscopy INDICATION: Pain FINDINGS: Fluoroscopy time: 4 seconds. Images obtained: 2. IMPRESSIONS: 1. Documentation of fluoroscopy.
[2022-05-17 10:21] VITALS: BP 120/82; PULSE 87; RESP 15
== END 2022-05-17 10:35 | disposition home or self-care (01) ==
LOC: ORPAIN 09:14
DX: M54.12 Radiculopathy, cervical region (principal); I10 Essential (primary) hypertension; Z96.642 Presence of left artificial hip joint; Z79.1 Long term (current) use of non-steroidal anti-inflammatories (NSAID); Z79.01 Long term (current) use of anticoagulants
CPT/HCPCS: 99152; 62321; J2250; J1100; J3010; Q9966

== ENCOUNTER → 2022-06-06 | Outpatient (CLI) | payer MEDICARE ==
[2022-06-06 12:43] VITALS: BP 138/84; PULSE 82; RESP 18; TEMP 97.7
--- NOTE | 2022-06-06 14:45 | P.PAINPG ---
PQRS Measure Charge Sheet Comment: A 66 yr old male with a history of severe and chronic neck pain secondary to cervical DDD and spondylosis with facet arthropathy without myelopathy presents today for evaluation s/p NAZ R paramedian C6-C7. Pt states he experienced 95 % pain relief x 2 wks s/p procedure. Pain level is currently at 1/10 in intensity, constant, localized in the L shoulder, deep throbbing in character without shooting pain. Pain is provoked by laying on his L side. Pain is alleviated with medications ([place], [place]), laying on his R side, repositioning and rest. Interventional pain procedures completed include R Paramedian NAZ C6-C7 x2, R JOHN Patient is currently on [place], Ibu Patient denies any side effects of the medication(s), denies excessive drowsiness or sleepiness, denies suicidal ideation and reports that the current pain medication is helping to control the pain and improve activities of daily living. Patient denies any motor or sensory deficits. Patient denies any fever or night sweats, denies any change in the bowel movements or urination. Physical Examination: -Constitutional: Cooperative. Not in acute distress . - Neurologic: Cranial nerve II to XII intact. No focal neurological deficits. - Psychatric: Alert & oriented x 3. Matching mood & appropriate affect. Judgment and insight intact. - Musculoskeletal: Cervical spine: Muscle bulk/ tone/ strength in the bilateral upper extremities normal Vertebral body tenderness to palpation over Spurling test positive Distraction test positive Facet loading test positive Thoracic spine Muscle bulk / tone/ strength in the bilateral paraspinal muscles normal Vertebral body tender to palpation over Facet loading test positive Lumbar spine: Motor bulk/ tone/ strength lower extremities , thigh and legs : 5/5 Deep tendon reflexes : Normal Knee Jerk. Normal Ankle Jerk . Vertebral body tenderness to palpation over Lumbar Facet Loading Test positive Straight Leg Raise: positive at 30 degrees right side/ left side Gaenslen's Test positive Sacral spine : Severe tenderness over the Sacroiliac joint: right side / left side Range of motion: Flexion of the lumbar spine <60 degrees Range of motion: Extension of the lumbar spine <20 degrees Gaenslen's Test positive Johana test: positive right side / left side Thigh Thrust Test Sacral Thrust Test Assessment and plan: Chronic neck pain secondary to cervical DDD, spondylosis with facet arthropathy without myelopathy, L Shoulder Strain Pt exhibited suffiicent and substantial pain relief w prior CESIs. He will manage his residual pain w home remedies and may return to this clinic on an as needed basis. He will follow up at Dr Vazquez's office for his L shoulder pain. Risks, benefits of procedure discussed and pt verbalized understanding. Denies anticoagulant use or medical history of diabetes. All patient questions answered I have spent less than 30 minutes on patient care today. Dr Rodas was available by phone for the evaluation of this patient. The time was used to review the medical records including relevant urine studies and Prescription history (MAPs), review of the available imaging, evaluation and examination of the patient, coordination of care with the medical staff and if applicable referring physicians, as well as creation of the medical record PQRS Narrative: Hx Alcohol Use (MH) Yes: 2 or 3 x a week Home Medications: Ambulatory Orders Aspirin [Adult Low Dose Aspirin EC] 81 mg PO DAILY 03/30/21 Cholecalciferol (Vitamin D3) [Vitamin D3 (125 MCG = 5,000 IU)] 250 mcg PO DAILY 03/30/21 HYDROcodone/APAP 5-325MG [[place] 5-325] 1 tab PO BID PRN 03/30/21 Lisinopril-Hctz 20-25 mg [Zestoretic 20-25] 1 tab PO DAILY 03/30/21 Sennosides [Senokot] 2 tab PO DAILY PRN #60 tablet 04/03/21 Acid Reflux Med 1 dose PO DIRECTED PRN 12/18/21 Controlled Substance Measures - Controlled Substance Measures Is patient prescribed a controlled substance at discharge?: No
== END ==
LOC: PNWHC3 12:18
PROVIDERS: ATTEND Specialist
DX: M47.812 Spondylosis without myelopathy or radiculopathy, cervical region (principal); M50.30 Other cervical disc degeneration, unspecified cervical region; G89.29 Other chronic pain
CPT/HCPCS: 99211